=== PATIENT | male | born 1975 | race Hispanic/Latino ===

== ENCOUNTER 2022-06-26 20:44 | Emergency (ER) | payer OTHER ==
[~2022-06-26] VITALS: Ht 180.3 cm; Wt 88.0 kg
[2022-06-26 22:02] VITALS: BP 134/89
[2022-06-26] MEDS ORDERED: IBUPROFEN 800 MG TAB PO ONE (22:30)
== END 2022-06-26 22:38 | disposition home or self-care (01) ==
LOC: EDH 20:44
DX: R51.9 Headache, unspecified (principal); I10 Essential (primary) hypertension; F10.20 Alcohol dependence, uncomplicated; F17.200 Nicotine dependence, unspecified, uncomplicated
CPT/HCPCS: 99282